=== PATIENT | female | born 1985 | race Caucasian/White ===

== ENCOUNTER 2016-12-18 09:46 | Emergency (ER) | payer MEDICAID, SELFPAY ==
[2016-12-18 09:46] VITALS: BMI 20.5
[2016-12-18 09:56] VITALS: RESP 16; TEMP 98.4; O2SAT 98
--- NOTE | 2016-12-18 10:30 | ED PDOC ---
Arrival/HPI - General Chief Complaint: Back Pain Time Seen by Provider: 12/18/16 09:52 Historian: Patient - History of Present Illness Narrative History of Present Illness (Text): 12/18/16 10:27 31-year-old female presents today with a 2 week history of pain to the buttocks. Patient states 2 weeks ago she slipped and fell in the bathroom landing on her buttocks. She is complaining of pain to the tailbone. Patient states the pain has been much better but she still is experiencing sharp pains intermittently if she is walking or sitting on her buttocks. She denies numbness weakness or tingling in the lower extremities. She denies back pain. Denies fevers or chills. No other complaints Time/Duration: Other (2 weeks) Symptom Onset: Sudden Symptom Course: Improving Quality: Aching, Stabbing Severity Level: 4 Past Medical History - Provider Review Nursing Documentation Reviewed: Yes - Travel History Have you recently traveled outside [place] w/in the past 3 mons?: No - Infectious Disease Hx of Infectious Diseases: None - Tetanus Immunization Tetanus Immunization: Unknown - Cardiac Hx Cardiac Disorders: No - Pulmonary Hx Asthma: No - Neurological Hx Neurological Disorder: No - HEENT Hx HEENT Disorder: No - Renal Hx Renal Disorder: No - Endocrine/Metabolic Hx Endocrine Disorders: No - Hematological/Oncological Hx Blood Disorders: No - Integumentary Hx Psoriasis: Yes - Musculoskeletal/Rheumatological Hx Musculoskeletal Disorders: No - Gastrointestinal Hx Gastrointestinal Disorders: No - Genitourinary/Gynecological Hx Genitourinary Disorders: No - Psychiatric Hx Psychophysiologic Disorder: No Hx Substance Use: No - Surgical History Other/Comment: R/T MISCARRIAGE - Suicidal Assessment Feels Threatened In Home Enviroment: No Family/Social History - Physician Review Nursing Documentation Reviewed: Yes Family/Social History: Unknown Family HX Smoking Status: Never Smoked Hx Alcohol Use: No Hx Substance Use: No Allergies/Home Meds Allergies/Adverse Reactions: Allergies No Known Allergies Allergy (Verified 12/18/16 09:50) Review of Systems - Review of Systems Constitutional: absent: Fatigue, Fevers Respiratory: absent: SOB, Cough Cardiovascular: absent: Chest Pain, Palpitations Gastrointestinal: absent: Abdominal Pain, Nausea, Vomiting Genitourinary Female: absent: Dysuria, Frequency, Hematuria Musculoskeletal: Other (Pain to the buttocks/coccyx) Skin: Rash (History of psoriasis). absent: Pruritis Neurological: absent: Headache, Dizziness Psychiatric: absent: Anxiety, Depression Physical Exam Vital Signs Reviewed: Yes Vital Signs Temp Pulse Resp BP Pulse Ox 12/18/16 11:15 80 16 110/72 98 12/18/16 09:56 98.4 F 83 16 108/73 98 Temperature: Afebrile Blood Pressure: Normal Pulse: Regular Respiratory Rate: Normal Appearance: Positive for: Well-Appearing, Non-Toxic, Comfortable Pain Distress: None Mental Status: Positive for: Alert and Oriented X 3 - Systems Exam Head: Present: Atraumatic Mouth: Present: Moist Mucous Membranes Respiratory/Chest: Present: Clear to Auscultation Cardiovascular: Present: Regular Rate and Rhythm Abdomen: No: Tenderness Back: Present: Normal Inspection, Other (+ ttp over coccyx; no edema, no erythema; no ecchymosis; ). No: CVA Tenderness, Midline Tenderness, Paraspinal Tenderness Upper Extremity: Present: Normal ROM Lower Extremity: Present: Normal ROM Skin: Present: Warm, Dry, Rashes (Psoriatic rash to the entire body), Normal Color Psychiatric: Present: Alert, Oriented x 3 Medical Decision Making ED Course and Treatment: 12/18/16 10:29 Patient nontoxic well-appearing in no distress with stable vital signs. Motrin by mouth X-ray of the coccyx: + fracture Patient reassessment: Feeling better with medications ambulating with a steady gait. Muscle strength 5 out of 5 bilaterally. I advised to followup with the orthopedist within the next 2 days. Return if symptoms worsen persist or new symptoms develop Patient verbalizes understanding of discharge instructions and need for immediate followup. Impression: coccyx fracture Motrin every 6 hours as needed for pain Use Donut Followup with the orthopedist within the next 2 days Followup with primary care physician within the next 2 days Return if symptoms worsen persist or if new symptoms develop - RAD Interpretation Radiology Orders: 12/18/16 10:26 SACRUM &/or COCCYX (MIN 2VW) [RAD] Stat - Medication Orders Current Medication Orders: Discontinued Medications Ibuprofen (Motrin Tab) 400 mg PO STAT STA Stop: 12/18/16 10:27 Last Admin: 12/18/16 10:34 Dose: 400 mg Disposition/Present on Arrival - Present on Arrival Any Indicators Present on Arrival: No History of DVT/PE: No History of Uncontrolled Diabetes: No Urinary Catheter: No History of Decub. Ulcer: No History Surgical Site Infection Following: None - Disposition Have Diagnosis and Disposition been Completed?: Yes Diagnosis: Fractured coccyx Disposition: HOME/ ROUTINE Disposition Time: 11:25 Patient Plan: Discharge Condition: GOOD Discharge Instructions (ExitCare): Coccyx Injury (ED) Additional Instructions: motrin every 6 hours as needed for pain Use Donut cushion while sitting. followup with the orthopedist within the next 2 days return if symptoms worsen,persist or if new symptoms develop. Prescriptions: Ibuprofen [Motrin Tab] 400 mg PO Q6H PRN #20 tab PRN Reason: Pain, Mild (1-3) Referrals: Olegario Raman MD [Primary Care Provider] - Follow up with primary Zenaida Xie MD [Staff Provider] - Follow up with primary Forms: WORK NOTE
--- NOTE | 2016-12-18 12:18 | RAD ---
PROCEDURE: Radiographs of the Sacrum and Coccyx HISTORY: fall/ pain to tailbone. COMPARISON: None available. TECHNIQUE: Frontal and lateral views of the sacrum and coccyx FINDINGS: BONES: There is a minimal nondisplaced cortical fracture of the tip of the coccyx SACROILIAC JOINTS: Unremarkable. OTHER FINDINGS: None. IMPRESSION: There is a minimal nondisplaced cortical fracture of the tip of the coccyx
[2016-12-18 12:27] VITALS: BP 110/72; PULSE 80
== END 2016-12-18 12:31 | disposition home or self-care (01) ==
LOC: ED 09:46
DX: S32.2XXA Fracture of coccyx, initial encounter for closed fracture (principal); W01.0XXA Fall on same level from slipping, tripping and stumbling without subsequent striking against object, initial encounter; Y93.E8 Activity, other personal hygiene; Y92.002 Bathroom of unspecified non-institutional (private) residence as the place of occurrence of the external cause